=== PATIENT | male | born 1960 | race Native Hawaiian/Other Pacific Islander ===

== ENCOUNTER 2019-02-16 07:31 | Outpatient (CLI) | payer BC | END 2019-02-16 20:19 | disposition home or self-care (01) | LOC: RAD 07:31 | DX: M25.511 Pain in right shoulder (principal) ==

== ENCOUNTER 2022-12-25 11:27 | Outpatient (CLI) | payer BC | END 2022-12-25 19:27 | disposition home or self-care (01) | LOC: RAD 11:27 | PROVIDERS: ATTEND Internal Medicine | DX: M25.562 Pain in left knee (principal); M25.561 Pain in right knee; M25.551 Pain in right hip ==